=== PATIENT | male | born 1970 | race Caucasian/White ===

== ENCOUNTER 2024-09-16 10:33 | Emergency (ER) | payer BC ==
[2024-09-16 11:27] LABS: BASOPHILS PERCENT AUTO 0.2 % (0.1-1.3); HEMOGLOBIN 15.9 g/dL (12.9-16.9); IMMATURE GRAN PERCENT AUTO 0.2 % (0.0-0.7); LYMPHOCYTES ABSOLUTE AUTO 0.44 K/uL (0.8-3.3); LYMPHOCYTES PERCENT AUTO 9.3 % (11.4-47.7); MEAN CORPUSCULAR HEMOGLOBIN 31.5 pg (31.6-35.5); MEAN CORPUSCULAR HGB CONC 34.6 g/dL (31.6-35.5); MEAN CORPUSCULAR VOLUME 91.1 fL (81.4-99.0); MONOCYTES PERCENT AUTO 8.4 % (3.3-12.6); NEUTROPHILS ABSOLUTE AUTO 3.88 K/uL (1.0-7.6); NEUTROPHILS PERCENT AUTO 81.9 % (40.0-78.1); PLATELET COUNT,PLT 149 K/uL (130-375); RED BLOOD CELL COUNT 5.05 M/uL (4.14-5.76); WHITE BLOOD CELL COUNT,WBC 4.7 K/uL (3.2-11.0)
[2024-09-16 11:37] LABS: BASOPHILS ABSOLUTE AUTO 0.01 K/uL (0.00-0.10); IMMATURE GRAN ABSOLUTE AUTO 0.01 K/uL (0.00-0.23)
[2024-09-16 11:45] LABS: ALANINE AMINOTRANSFERASE,ALT 64 U/L (12-78); ALBUMIN 3.5 g/dL (3.4-5.0); ALKALINE PHOSPHATASE 101 U/L (46-116); ASPARTATE AMNIOTRANSFERASE,AST 34 U/L (15-37); BILIRUBIN TOTAL 0.5 mg/dL (0.2-1.0); BLOOD UREA NITROGEN,BUN 7 mg/dL (7-18); CALCIUM 9.1 mg/dL (8.5-10.1); CARBON DIOXIDE,CO2 24 mmol/L (21-32); CHLORIDE,CL 99 mmol/L (100-108); CREATININE 0.9 mg/dL (0.8-1.3); EST CRCL DRUG DOSING (CG) 119.89 mL/min; ESTIMATED GFR 101 mL/min (>60); GLUCOSE RANDOM 116 mg/dL (74-106); PROTEIN TOTAL,TP 6.9 g/dL (6.4-8.2); SODIUM,NA 135 mmol/L (140-148)
[2024-09-16] MEDS: Sodium Chloride 0.9% 1,000 ML IV SCH (12:08)
[2024-09-16] MEDS: Ondansetron 4 MG/2 ML SDV IVPUSH ONE (12:08)
[2024-09-16] MEDS: Sodium Chloride 0.9% 80 ML IV SCH (13:40)
[2024-09-16] MEDS: Iopamidol 612 MG/ML 100 ML Bottle IV PRN (13:42)
== END 2024-09-16 15:37 | disposition home or self-care (01) ==
LOC: JP.ED 10:33
DX: R11.2 Nausea with vomiting, unspecified (principal); R63.0 Anorexia; R53.81 Other malaise; Z91.018 Allergy to other foods; Z79.899 Other long term (current) drug therapy
CPT/HCPCS: 36415; 74177; 80053; 83690; 85025; 96361; 96374; 99284; J2405; J7030; Q9967

== ENCOUNTER 2024-09-17 13:07 | Emergency (ER) | payer BC ==
[2024-09-17 14:52] LABS: HEMOGLOBIN 15.3 g/dL (12.9-16.9); MEAN CORPUSCULAR HEMOGLOBIN 31.5 pg (31.6-35.5); MEAN CORPUSCULAR HGB CONC 34.8 g/dL (31.6-35.5); MEAN CORPUSCULAR VOLUME 90.7 fL (81.4-99.0); PLATELET COUNT,PLT 130 K/uL (130-375); RED BLOOD CELL COUNT 4.85 M/uL (4.14-5.76); WHITE BLOOD CELL COUNT,WBC 3.8 K/uL (3.2-11.0)
[2024-09-17 15:07] LABS: CALCIUM 8.8 mg/dL (8.5-10.1); EST CRCL DRUG DOSING (CG) 107.9 mL/min; POTASSIUM,K 3.9 mmol/L (3.6-5.2)
[2024-09-17 15:09] LABS: ANION GAP 16.9 mmol/L (5.0-14.0)
[2024-09-17 15:11] LABS: ATYPICAL LYMPHOCYTES FEW; LYMPHOCYTES ABSOLUTE MAN 0.84 K/uL (0.8-3.3); LYMPHOCYTES PERCENT MAN 22 % (24-44); MONOCYTES ABSOLUTE MAN 0.38 K/uL (0.20-0.90); MONOCYTES PERCENT MAN 10 % (2-6); NEUTROPHILS ABSOLUTE MAN 2.58 K/uL (1.0-7.6); SEG NEUTROPHILS PERCENT MAN 68 % (36-66)
[2024-09-17] MEDS: LORazepam 2 MG/ML SDV IM ONE (15:27)
== END 2024-09-17 17:39 | disposition home or self-care (01) ==
LOC: JP.ED 13:07
DX: F41.9 Anxiety disorder, unspecified (principal); Z91.018 Allergy to other foods; Z79.899 Other long term (current) drug therapy
CPT/HCPCS: 36415; 80048; 85025; 96372; 99284; J2060